=== PATIENT | female | born 1980 | race African-American/Black ===

== ENCOUNTER 2016-11-10 10:55 | Emergency (ER) | payer OTHER ==
[2016-11-10 11:06] VITALS: BP 126/84; PULSE 78; TEMP 98; BMI 36.3
[2016-11-10 12:08] LABS: MCH 24.8 pg (25.7-33.7); MCHC 31.8 g/dl (32.0-36.0); MEAN CELL VOLUME 77.9 fl (80-96); PLATELET COUNT 253 K/MM3 (134-434); RDW 15.2 % (11.6-15.6); WHITE BLOOD COUNT 5.6 K/mm3 (4.0-10.0)
--- NOTE | 2016-11-10 12:22 | PDOC ---
History of Present Illness - General Chief Complaint: Carbon Monoxide Exposure Stated Complaint: CARBON MONOXIDE EXPOSURE Time Seen by Provider: 11/10/16 11:39 History Source: Patient Exam Limitations: No Limitations - History of Present Illness Initial Comments: 11/10/16 12:18 35 yr female history of migraines presents with c/o headache dizzyness while at work. Pt states other co workers with same complaints. 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 Pt currently has no headache or dizzyness states "I feel tired ". Timing/Duration: momentarily Severity: mild Associated Symptoms: reports: denies symptoms Past History - Past Medical History Allergies/Adverse Reactions: Allergies Allergy/AdvReac Type Severity Reaction Status Date / Time No Known Allergies Allergy Verified 11/10/16 11:06 Home Medications: Ambulatory Orders NK [No Known Home Medication] 11/10/16 Other medical history: HEADACHES - Psycho/Social/Smoking Cessation Hx Suicidal Ideation: No Smoking History: Never smoked Information on smoking cessation initiated: No Review of Systems - Review of Systems Able to Perform ROS?: Yes Is the patient limited Luxem[place]ish proficient: No Constitutional: No: Symptoms Reported HEENTM: No: Symptoms Reported Respiratory: No: Symptoms reported Cardiac (ROS): No: Symptoms Reported ABD/GI: No: Symptoms Reported : No: Symptoms Reported Musculoskeletal: No: Symptoms Reported Integumentary: No: Symptoms Reported Neurological: Yes: Symptoms reported, Other (fatigue) *Physical Exam - Vital Signs Last Vital Signs Temp Pulse Resp BP Pulse Ox 98 F 78 18 126/84 99 11/10/16 11:04 11/10/16 11:04 11/10/16 11:04 11/10/16 11:04 11/10/16 11:04 - Physical Exam General Appearance: Yes: Nourished, Appropriately Dressed HEENT: positive: EOMI, MARTY, Normal ENT Inspection, TMs Normal, Pharynx Normal Neck: positive: Supple. negative: Tender Respiratory/Chest: positive: Lungs Clear, Normal Breath Sounds Cardiovascular: positive: Regular Rhythm, Regular Rate Gastrointestinal/Abdominal: positive: Normal Bowel Sounds, Soft Musculoskeletal: positive: Normal Inspection Extremity: positive: Normal Capillary Refill, Normal Inspection, Normal Range of Motion Integumentary: positive: Normal Color, Dry, Warm Neurologic: positive: Fully Oriented, Alert, Normal Mood/Affect, Normal Response , Motor Strength 08/06 ED Treatment Course - LABORATORY CBC & Chemistry Diagram: 11/10/16 12:00 11/10/16 12:00 - ADDITIONAL ORDERS Additional order review: Laboratory Results 11/10/16 11:55 Carboxyhemoglobin 0.9 11/10/16 12:00 RBC 4.95 MCV 77.9 L MCHC 31.8 L RDW 15.2 MPV 8.0 Medical Decision Making - Medical Decision Making 11/10/16 12:21 cc: feeling tired after CO exposure vitals stable pt offers no c/o headache or dizzyness or nausea will check basic labs, CO levels , monitor 11/10/16 13:53 labs WNL pt is asymptomatic on discharge *DC/Admit/Observation/Transfer Diagnosis at time of Disposition: Carbon monoxide exposure - Discharge Dispostion Disposition: HOME Condition at time of disposition: Good - Patient Instructions Additional Instructions: drink pleanty of fluids stay in a fresh air environment follow with your doctor if any worsening symptoms your blood test are all normal today - Post Discharge Activity Work/School Note: Back to Work
[2016-11-10 13:01] LABS: ALBUMIN 3.8 g/dl (3.4-5.0); ANION GAP 6 (8-16); CALCIUM 9.3 mg/dL (8.5-10.1); CO2 26 mmol/L (21-32); CREATININE 0.9 mg/dL (0.55-1.02); GLUCOSE,RANDOM 97 mg/dL (74-106); SGOT/AST 12 U/L (15-37); SGPT/ALT 19 U/L (12-78)
[2016-11-10 13:03] LABS: ALK PHOS 45 U/L (45-117); BILIRUBIN,TOTAL 0.4 mg/dL (0.2-1.0); TOT PROT 7.6 g/dl (6.4-8.2)
== END 2016-11-10 12:46 | disposition home or self-care (01) ==
LOC: JERFT 10:55
DX: Z77.29 Contact with and (suspected) exposure to other hazardous substances (principal); X58.XXXA Exposure to other specified factors, initial encounter; Y93.89 Activity, other specified; Y92.59 Other trade areas as the place of occurrence of the external cause; Y99.0 Civilian activity done for income or pay
CPT/HCPCS: 36415; 80053; 82375; 84703; 85027; 99281-25